=== PATIENT | female | born 1990 | race African-American/Black ===

== ENCOUNTER 2016-09-26 11:00 | Emergency (ER) | payer OTHER ==
[~2016-09-26] VITALS: Ht 151.1 cm; Wt 88.6 kg
[2016-09-26 11:09] VITALS: BP 109/63
--- NOTE | 2016-09-26 13:17 | NUR ---
Patient ambulated to bed 8. [facility] evaluating patient at bedside.
--- NOTE | 2016-09-26 13:18 | NUR ---
25/F c/o vaginal burning for the past 4 days. Pt states she has used a new gel for sexual intercourse tht has a new scent. Pt c/o burning to vaginal area, no ulcerations present. Denies bleeding or dischage. Pt states she has been treating herself over the counter. AOX4, ambulatory with steady gait. VSS.
--- NOTE | 2016-09-26 13:22 | NUR ---
Patient being evaluated by physician at bedside.
--- NOTE | 2016-09-26 14:30 | NUR ---
Patient appears to be resting comfortably in bed. VSS.
[2016-09-26 14:59] LABS: APPEARANCE,URINE TURBID (CLEAR); BILIRUBIN,URINE NEGATIVE (NEGATIVE); BLOOD, URINE NEGATIVE (NEGATIVE); COLOR,URINE YELLOW (YELLOW); LEUKOCYTE ESTERASE ,URINE 2+ (NEGATIVE); NITRITE, URINE NEGATIVE (NEGATIVE); PROTEIN,URINE TRACE (NEGATIVE); UGLUCOSE NEGATIVE (NEGATIVE); UROBILINOGEN,URINE 0.2 EU/dL (0.2 - 1)
[2016-09-26 15:02] LABS: BACTERIA,URINE 2+ /HPF (None Seen); RBC,URINE 0-5 /HPF (0-5)
[2016-09-26 15:03] LABS: URINE AMORPHOUS URATE 4+ /HPF (None Seen)
[2016-09-26 15:34] VITALS: BP 108/61
--- NOTE | 2016-09-26 15:34 | NUR ---
Patient discharged with v/s stable. Written and verbal after care instructions given and explained. Patient verbalized understanding. Ambulatory with steady gait. All questions addressed prior to discharge. Advised to follow up with PMD.
[2016-09-28 06:27] LABS: CHLAMYDIA TRACHOMATIS AMP DNA Negative (Negative)
== END 2016-09-26 15:34 | disposition home or self-care (01) ==
LOC: MED 11:00
DX: N76.0 Acute vaginitis (principal); Z11.3 Encounter for screening for infections with a predominantly sexual mode of transmission; Z88.8 Allergy status to other drugs, medicaments and biological substances
CPT/HCPCS: 36415; 81001; 81025; 87086; 87210; 87491; 99284

== ENCOUNTER 2021-08-11 12:26 | Emergency (ER) | payer OTHER ==
[~2021-08-11] VITALS: Ht 149.9 cm; Wt 93.0 kg
[~2021-08-11 12:26] MED LIST: ACET-8386 PO; AMOX-1230 PO; LORA10TA19 PO
[2021-08-11 12:37] VITALS: BP 114/70
[2021-08-11] MEDS ORDERED: ONDANSETRON 4 MG/2 ML VIAL IVP ONE (13:05)
[2021-08-11] MEDS ORDERED: MORPHINE SULFATE 4 MG/ML SYR IVP ONE (13:05)
--- NOTE | 2021-08-11 13:12 | NUR ---
18G IV ESATBLISHED IN L AC. BLOOD WORK COLLECTED AND HANDED TO [facility]
--- NOTE | 2021-08-11 13:29 | NUR ---
PT REQUESTING TO REMOVE L AC IV. INFORMED NEED IV FOR CT SCAN WITH CONTRAST
[2021-08-11] MEDS ORDERED: NACL 0.9% 1,000 ML IV ONE (13:35)
--- NOTE | 2021-08-11 13:37 | NUR ---
30/F C/O RUQ PAIN X2 DAYS, REPORTS HAVING SURGERY LAST TUESDAY HERE FOR ECTOPIC . REPORTS TAKING TYLENOL WITH MILD RELIEF, REPORTS EPISODE OF DIARRHEA, DENIES N/V, CP, SOB. ABDOMEN IS SOFT AND NON-TENDER TO TOUCH. PT A&OX4. CURRENT PAIN 8/10, CRAMPING LIKE. PAIN RADIATES TO LOWER BACK REGION. PMH: DENIES ALLERGIES: SIVA
[2021-08-11 13:44] LABS: BASOPHILS % (AUTO) 0.3 % (0.0-2.0); EOSINOPHILS # (AUTO) 0.4 K/uL (0-0.4); EOSINOPHILS % (AUTO) 3.6 % (0.0-4.0); HEMATOCRIT 31.5 % (36-48); HEMOGLOBIN 10.5 g/dL (12.0-16.0); LYMPHOCYTES # (AUTO) 1.4 K/uL (2.5-16.5); LYMPHOCYTES % (AUTO) 13.5 % (20.5-51.1); MEAN CORPUSCULAR HEMOGLOBIN 29 pg (27-31); MEAN CORPUSCULAR HGB CONC 33 g/dL (33-37); MEAN CORPUSCULAR VOLUME 85.7 fL (80-94); MONOCYTES # (AUTO) 0.5 K/uL (0.8-1.0); NEUTROPHILS % (AUTO) 77.6 % (42.2-75.2); PLATELET COUNT (AUTO) 383 K/uL (140-450); RED BLOOD CELL COUNT(AUTO) 3.68 MIL/uL (4.20-5.40); RED CELL DISTRIBUTION WIDTH 16.1 % (11.6-13.7); WHITE BLOOD COUNT (AUTO) 10.3 K/uL (4.8-10.8)
[2021-08-11 13:50] LABS: ALBUMIN 3.1 g/dL (3.4-5.0); CREATININE 0.9 mg/dL (0.6-1.3); TOTAL BILIRUBIN 0.4 mg/dL (0.0-1.0)
--- NOTE | 2021-08-11 14:20 | NUR ---
PT RETURNED TO BED [address] [facility] [facility]
[2021-08-11] MEDS ORDERED: KETOROLAC 15 MG/ML VIAL ONE (14:30)
[2021-08-11] MEDS ORDERED: KETOROLAC 15 MG/ML VIAL IVP ONE (14:30)
--- NOTE | 2021-08-11 14:38 | NUR ---
18G IV REMOVED FROM L AC DUE TO PATIENT REQUEST
--- NOTE | 2021-08-11 14:39 | NUR ---
PT SPOUSE BEDSIDE
[2021-08-11 15:34] LABS: APPEARANCE,URINE CLEAR (CLEAR); BILIRUBIN,URINE NEGATIVE (NEGATIVE); BLOOD, URINE NEGATIVE (NEGATIVE); COLOR,URINE YELLOW (YELLOW); LEUKOCYTE ESTERASE ,URINE NEGATIVE (NEGATIVE); NITRITE, URINE NEGATIVE (NEGATIVE); PH,URINE 5.5 (5.0-9.0); UGLUCOSE NEGATIVE (NEGATIVE)
[2021-08-11] MEDS ORDERED: NAPR-54 PO (16:04)
[2021-08-11 16:15] VITALS: BP 100/68
== END 2021-08-11 16:15 | disposition home or self-care (01) ==
LOC: MED 12:26
DX: R10.9 Unspecified abdominal pain (principal); Z98.890 Other specified postprocedural states; Z79.899 Other long term (current) drug therapy; Z88.8 Allergy status to other drugs, medicaments and biological substances
CPT/HCPCS: 36415; 74177; 80053; 81003; 81025; 83690; 84703; 85025; 96361; 96374; 99285; J1885; J7030; Q9967; J2270; J2405